=== PATIENT | male | born 1950 | race Caucasian/White ===

== ENCOUNTER 2021-10-30 15:26 | Inpatient (IN) ==
[2021-10-30 16:32] LABS: Basophils % 0.4 %; Eosinophils # 0.1 K/mcL (0.0-0.6); Eosinophils % 0.6 %; Hematocrit 41.3 % (37.5-50.1); Hemoglobin 13.8 g/dL (12.9-16.9); Immature Granulocytes % 0.4 % (0-4); Lymphocytes # 1.2 K/mcL (0.6-4.6); Lymphocytes % 12.8 %; Mean Corpuscular HGB Conc 33.4 g/dL (31.6-35.5); Mean Corpuscular Hemoglobin 32.8 pg (28.0-33.3); Mean Corpuscular Volume 98.1 fL (83.0-100.0); Mean Platelet Volume 10.7 fL (9.4-12.4); Monocytes # 0.7 K/mcL (0.0-1.3); Monocytes % 7.7 %; Neutrophils # 7.4 K/mcL (1.6-8.9); Platelet Count 208 K/mcL (140-400); Red Blood Count 4.21 M/mcL (4.19-5.50); Segmented Neutrophils % 78.1 %; White Blood Count 9.5 K/mcL (4.3-11.1)
[2021-10-30 16:42] LABS: INR 1.1; Prothrombin Time 12.3 Seconds (9.4-12.1)
[2021-10-30 16:44] LABS: Activated Partial Thrombo Time 33.4 Seconds (26.0-36.0)
[2021-10-30 17:00] LABS: Alanine Aminotransferase 47 Units/L (7-52); Albumin 4.5 g/dL (3.5-5.7); Albumin/Globulin Ratio 2.5 (1.1-2.2); Alkaline Phosphatase 76 Units/L (34-104); Aspartate Amino Transferase 32 Units/L (13-39); BUN/Creatinine Ratio 28 (6-26); Bilirubin,Direct 0.2 mg/dL (0.0-0.2); Bilirubin,Total 1.2 mg/dL (0.3-1.0); Blood Urea Nitrogen 23 mg/dL (8-23); Calcium 9.3 mg/dL (8.6-10.3); Carbon Dioxide 26 mEq/L (23-29); Chloride 105 mEq/L (98-107); Globulin 1.8 g/dL (2.4-3.5); Glucose 102 mg/dL (70-105); Osmolality,Calculated 292 (280-300); Potassium 3.9 mEq/L (3.5-5.1); Sodium 139 mEq/L (136-145); Total Protein 6.3 g/dL (6.4-8.9); eGFR For African Americans > 60 (> 60); eGFR For Non-African Americans > 60 (> 60)
[2021-10-30] MEDS ORDERED: Iopamidol - 370 500 ML MLS IVP ONE (17:04)
[2021-10-30] MEDS ORDERED: Aspirin 325 MG TABLET PO ONE (17:04)
[2021-10-30] MEDS ORDERED: Melatonin 3 MG TABLET PO PRN (23:13)
[2021-10-30] MEDS ORDERED: Naloxone 0.4 MG/ML INJ IVP PRN (23:13)
[2021-10-30] MEDS ORDERED: Acetaminophen 325 MG TABLET PO PRN (23:13)
[2021-10-30] MEDS ORDERED: *HR* LORazepam 0.5 MG TABLET PO ONE (23:38)
[2021-10-30] MEDS ORDERED: traZODone 50 MG TABLET PO SCH (23:45)
[2021-10-31] MEDS: Furosemide 40 MG/4 ML VIAL IVP SCH ×3 (00:26→16:36)
[2021-10-31 02:48] LABS: Basophils % 0.3 %; Eosinophils # 0.1 K/mcL (0.0-0.6); Eosinophils % 1.2 %; Hematocrit 38.8 % (37.5-50.1); Hemoglobin 13.3 g/dL (12.9-16.9); Immature Granulocytes % 0.3 % (0-4); Lymphocytes # 1.3 K/mcL (0.6-4.6); Lymphocytes % 14.4 %; Mean Corpuscular HGB Conc 34.3 g/dL (31.6-35.5); Mean Corpuscular Hemoglobin 32.5 pg (28.0-33.3); Mean Corpuscular Volume 94.9 fL (83.0-100.0); Mean Platelet Volume 10.6 fL (9.4-12.4); Monocytes # 0.8 K/mcL (0.0-1.3); Monocytes % 8.9 %; Neutrophils # 6.6 K/mcL (1.6-8.9); Platelet Count 209 K/mcL (140-400); Red Blood Count 4.09 M/mcL (4.19-5.50); Red Cell Distribution Width 12.6 % (11.5-14.5); Segmented Neutrophils % 74.9 %; White Blood Count 8.9 K/mcL (4.3-11.1)
[2021-10-31 03:05] LABS: BUN/Creatinine Ratio 24 (6-26); Blood Urea Nitrogen 19 mg/dL (8-23); Carbon Dioxide 29 mEq/L (23-29); Chloride 104 mEq/L (98-107); Glucose 113 mg/dL (70-105); Magnesium 1.8 mg/dL (1.6-2.6); Osmolality,Calculated 293 (280-300); Phosphorous 2.8 mg/dL (2.7-4.5); Potassium 3.3 mEq/L (3.5-5.1); Sodium 140 mEq/L (136-145); eGFR For African Americans > 60 (> 60); eGFR For Non-African Americans > 60 (> 60)
[2021-10-31 04:44] LABS: ABG Base Excess 4 mEq/L (-2 to 3); ABG HCO3 28 mEq/L (21-27); ABG Oxygen Saturation 97 % (95-98); ABG PCO2 38 mmHg (35-45); ABG PH 7.47 pH Units (7.32-7.45); ABG PO2 81 mmHg (85-104); ABG TCO2 29 mEq/L (20-26)
[2021-10-31] MEDS ORDERED: *HR* Heparin 5,000 UNIT/ML VIAL SQ SCH (06:00)
[2021-10-31] MEDS ORDERED: methocarbamoL 750 MG TABLET PO PRN (12:00)
[2021-10-31] MEDS ORDERED: *HR* LORazepam 0.5 MG TABLET PO PRN (12:00)
[2021-10-31] MEDS: FLUoxetine 20 MG CAPSULE PO SCH (13:28)
[2021-10-31] MEDS ORDERED: traZODone 50 MG TABLET PO SCH (21:00)
[2021-11-01 02:10] LABS: BUN/Creatinine Ratio 26 (6-26); Blood Urea Nitrogen 18 mg/dL (8-23); Calcium 8.9 mg/dL (8.6-10.3); Carbon Dioxide 31 mEq/L (23-29); Chloride 104 mEq/L (98-107); Glucose 97 mg/dL (70-105); Magnesium 1.8 mg/dL (1.6-2.6); Osmolality,Calculated 294 (280-300); Potassium 3.3 mEq/L (3.5-5.1); Sodium 141 mEq/L (136-145); eGFR For African Americans > 60 (> 60); eGFR For Non-African Americans > 60 (> 60)
[2021-11-01] MEDS ORDERED: *HR* Enoxaparin 40 MG/0.4 ML SYRINGE SQ SCH (06:00)
[2021-11-01 07:36] VITALS: BP 171/93; PULSE 85; TEMP 97.9; O2SAT 96
[2021-11-01] MEDS ORDERED: Furosemide 20 MG TABLET PO SCH (08:00)
[2021-11-01] MEDS: FLUoxetine 20 MG CAPSULE PO SCH (08:43)
[2021-11-01] MEDS ORDERED: Aspirin 81 MG TAB.CHEW PO SCH (09:00)
[2021-11-01] MEDS ORDERED: FLUoxetine 20 MG CAPSULE PO SCH (09:00)
== END 2021-11-01 12:30 | disposition home or self-care (01) | DRG 280 ==
LOC: EMEROOARM 15:26 → 2NENU 15:26 → SUATTDRO 21:58 → 2NENU 22:49
PROVIDERS: ADMIT Internal Medicine; ATTEND Internal Medicine